=== PATIENT | female | born 1980 | race Caucasian/White ===

== ENCOUNTER 2016-07-01 17:02 | Emergency (ER) | payer OTHER ==
--- NOTE | ~2016-07-01 | CT2 ---
[facility] A Service of [facility] & [facility] RADIOLOGY TEXT RESULTS PATIENT: BOY BURTON LOCATION: SED : [birth year] UNIT #: [id number] AGE: [address]: Kennedi Dia SEX: F ORDER DR: [id number] [address] [address] [id number] E MR#: [id number] Acc #: [id number] NAME: BOY BURTON : 1980 SEX: F STUDY DATE/TIME: 07/01/2016 17:52 UNIT: SED ROOM: STUDY DESCRIPTION: CT Abd and Pelv W Cont Attending Physician: Kennedi Dia Pa-C Ordering Physician: Santos Calabrese M.D. Primary Care Physician: Vince Padron M.D. MEDICAL IMAGING REPORT This report is preliminary unless electronic signature is present. EXAM CT scan of the abdomen and pelvis with contrast, 07/01/2016 HISTORY Abdomen pain and kidney pain for 3 days with back pain and nausea. No known injury. TECHNIQUE Spiral CT was performed through the abdomen and pelvis following intravenous contrast administration only, as per clinician request. This CT exam was performed with one or more of the following radiation dose reduction techniques: Automatic exposure control, adjustment of mA and/or kV according to patient size, and iterative reconstruction. FINDINGS ABDOMEN: The exam is limited by the lack of oral contrast. The liver, spleen, pancreas, gallbladder and biliary tree, adrenal glands and kidneys are normal. PELVIS FINDINGS: There is mild dilatation of the proximal and mid small bowel with air-fluid levels identified and transition zone in the [id number] small bowel at the approximate level of the umbilicus. The colon is normal in course and caliber and contains a moderate amount of fecal matter. Differential diagnosis includes partial small bowel obstruction versus ileus. Clinical correlation and follow up recommended. No adenopathy is seen, and there is no free air identified. Images of the lung bases are normal. IMPRESSION Mild dilatation of the proximal and mid small bowel with multiple air-fluid levels identified. There is a transition zone in the mid abdomen at the approximate level of the umbilicus, with the more distal STS. [facility] A Service of [facility] & [facility] RADIOLOGY TEXT RESULTS PATIENT: BOY BURTON LOCATION: SED : [birth year] UNIT #: [id number] AGE: [address]: Kennedi Dia SEX: F ORDER DR: small bowel somewhat decompressed although the colon is normal in course and caliber and contains a moderate amount of fecal matter. Differential diagnosis includes mild partial small bowel obstruction versus ileus. Clinical correlation and follow up recommended. Dictated by... Dusty Vuong M.D. THIS IS AN ELECTRONICALLY VERIFIED REPORT Dusty Vuong M.D. at 07/02/2016 10:55 AM DEMETRIA/pippa TD: 07/02/2016 02:52 JOB #: [id number] MEDICAL IMAGING REPORT
[~2016-07-01 17:02] MED LIST: ALB/IPRATROPIUM/1 E1; ALBUTEROL17 GM INH; AMOXICILLIN PO; AMOXIL875 MG PO; B COMPLEX1 TAB PO; BACTRIM DS TABL1 TA1 PO; BENADRYL PO; BENADRYL25 MG PO; BENZONATATE PO; CLEOCIN HCL300 M1 PO; CLINDAMYCIN HC300 MG PO; DICLOFENAC PO; DIFLUCAN100 MG PO; DOLOBID500 MG PO; DOXYCYCLINE PO; FLEXERIL PO; FLEXERIL10 MG PO; HYCODAN60 ML 5MG/ PO; HYDROCODON-ACE1 EACH PO; HYDROCODONE BI473 M1 PO; IBUPROFEN PO; IBUPROFEN800 MG PO; KLONOPIN0.5 MG PO; LORTAB 5/500 TA1 TA2 PO; MEDROL4 MG/DOSE- PO; MOBIC15 MG PO; NAPROSYN250 M1 PO; NEXIUM PO; NO MEDICATIONS; PEN-VEE K PO; PERCOCET5/325 PO; PHENERGAN W/CO120 ML PO; PHENERGAN25 MG PO; PREDNISONE PO; PREDNISONE10 MG PO; PROVENTIL0.83 MG/ML; PROVENTIL17 GM IH; PYRIDIUM PO; ROBAXIN500 MG PO; ROBITUSSIN A-C-S1 ML PO; SKELAXIN PO; SUBOXONE 8 MG-1 EAC1 SL; SYNTHROID0.05 MG PO; TYLENOL #3 PO; TYLENOL PM EX-S1 TA4; TYLENOL PM EX-S1 TA4 PO; VICODIN 5/1 TAB 5/50 PO; VICODIN 5/500 T1 TAB PO; VOLTAREN50 MG PO; VOLTAREN75 MG PO; ZITHROMAX PO; ZOFRAN ODT4 MG PO; ZOLOFT PO; [UNRECOGNIZED DRUG - OTHER]
[2016-07-01 17:15] LABS: URINE SOURCE CLEAN CATCH
[2016-07-01 17:19] LABS: URINE APPEARANCE CLEAR; URINE BILIRUBIN NEG (NEG); URINE COLOR YELLOW; URINE GLUCOSE NEG (NORM); URINE KETONE NEG (NEG); URINE LEUKOCYTE ESTERASE NEG (NEG); URINE NITRATE NEG (NEG); URINE PH 6.5 (5-8); URINE PROTEIN NEG (NEG); URINE UROBILINOGEN 0.2 MG/DL (NORM)
[2016-07-01 17:19] LABS: BASOPHIL% 0.9 % (0-2.5); EOSINOPHIL# 0.1 X10e3 (0-0.7); EOSINOPHIL% 2.5 % (0.0-7.0); HEMATOCRIT 36.7 % (35.0-45.0); HEMOGLOBIN 12.3 gm/dL (12.0-16.0); LYMPHOCYTE# 1.9 X10e3 (1.0-3.5); LYMPHOCYTE% 47.8 % (17.0-45.0); MEAN CELL VOLUME 91.3 FL (83-96); MEAN CORPUSCULAR HEMOGLOBIN 30.6 PG (28-34); MEAN CORPUSCULAR HGB CONC 33.5 g/dL (30-36); MEAN PLATELET VOLUME 8.5 FL (6.5-11.5); MONOCYTE# 0.4 X10e3 (0-1.0); MONOCYTE% 10.9 % (3.0-12.0); NEUTROPHIL# 1.5 X10e3 (1.5-7.1); NEUTROPHIL% 37.9 % (40-75); PLATELET COUNT 399 X10e3 (140-420); RED BLOOD COUNT 4.02 X10e (3.90-5.30); RED CELL DISTRIBUTION WIDTH 12.7 % (11.0-15.5); WHITE BLOOD COUNT 4.1 X10e3 (4.0-10.5)
[2016-07-01 17:20] LABS: DIFF IND NO
[2016-07-01 17:22] LABS: MICRO INDICATED? NO; URINE BLOOD NEG (NEG)
[2016-07-01 17:37] LABS: ALBUMIN SERUM 4.5 g/dL (3.5-5.0); ALKALINE PHOSPHATASE 51 U/L (32-92); ALT (SGPT) 24 U/L (10-40); AMYLASE 23 U/L (0-46); AST (SGOT) 31 U/L (10-42); BILIRUBIN,TOTAL 0.2 mg/dL (0.2-2.0); BLOOD UREA NITROGEN 27 mg/dL (9-23); BUN/CREATININE RATIO 33.75; CARBON DIOXIDE 25 mmol/L (22-31); CHLORIDE 106 mmol/L (100-111); CREATININE SERUM 0.8 mg/dL (0.6-1.4); GLOM FILT RATE Estimated ABOVE60 mL/min (>60); GLUCOSE FASTING 97 mg/dL (70-110); LIPASE 28 U/L (22-51); POTASSIUM 4.1 mmol/L (3.5-5.1); PROTEIN TOTAL SERUM 7.8 g/dL (6.0-8.3); SODIUM 139 mmol/L (135-145)
[2016-07-01 17:39] LABS: BILIRUBIN, DIRECT <0.1 mg/dL (0.0-0.2); BILIRUBIN,INDIRECT 0.1 mg/dL (0.0-0.9)
== END 2016-07-01 21:10 ==
LOC: SED 17:02
PROVIDERS: Physician Assistant
DX: K56.60 Unspecified intestinal obstruction (principal); J45.909 Unspecified asthma, uncomplicated; F41.9 Anxiety disorder, unspecified; F32.9 Major depressive disorder, single episode, unspecified; Z98.51 Tubal ligation status; Z98.890 Other specified postprocedural states
CPT/HCPCS: 36415; 74177; 80048; 80076; 81003; 82150; 83690; 84703; 85025; 96361; 96374; 96375; 99285; J1885; J2405; J2550; Q9967

== ENCOUNTER 2016-07-13 23:30 | Emergency (ER) | payer OTHER | END 2016-07-13 23:33 | disposition home or self-care (01) | LOC: SED 23:30 | DX: I80.8 Phlebitis and thrombophlebitis of other sites (principal) | CPT/HCPCS: 99283 ==

== ENCOUNTER 2016-12-18 15:55 | Emergency (ER) | payer OTHER ==
[~2016-12-18] VITALS: Ht 167.6 cm; Wt 104.3 kg
--- NOTE | ~2016-12-18 | CT71 ---
[facility] A Service of [facility] RADIOLOGY TEXT RESULTS PATIENT: BOY BURTON LOCATION: [facility] : [birth year] UNIT #: [id number] AGE: [address]: Boogie Carolina MD SEX: F ORDER DR: [id number] [facility] [address] [place], [place] [address] [id number] E MR#: [id number] Acc #: [id number] NAME: BOY BURTON : 1980 SEX: F STUDY DATE/TIME: 12/18/2016 19:37 UNIT: [facility] ROOM: STUDY DESCRIPTION: CT Head Wo Contrast Attending Physician: Choco Carolina M.D. Ordering Physician: Jaden Carrero M.D. Primary Care Physician: Vince Padron M.D. MEDICAL IMAGING REPORT This report is preliminary unless electronic signature is present EXAM Head CT without HISTORY Migraine headache for 5 days, dizziness, blurred vision and nausea. COMMENT Routine noncontrast head CT is reviewed. This CT examination was performed with one or more of the following radiation dose reduction techniques: automatic exposure control, adjustment of mA and/or kV according to patient size, and iterative reconstruction. Comparison is from 05/17/2008. There is no displaced calvarial fracture. The visualized mastoid air cells are clear. The visualized paranasal sinuses are clear. There is no evidence for acute intracranial hemorrhage or extraaxial fluid collection. The ventricles are normal in size and configuration and the padron-white junction is well-maintained. The basilar cisterns are patent. There is no intracranial mass effect. No acute cortical infarct is suspected but if this is of clinical concern followup imaging recommended. IMPRESSION Negative noncontrast head CT. Dictated by... Mami Rowe M.D. THIS IS AN ELECTRONICALLY VERIFIED REPORT Mami Rowe M.D. at 12/19/2016 10:24 AM [facility] A Service [facility] RADIOLOGY TEXT RESULTS PATIENT: BOY BURTON [id number] [birth year] UNIT #: [id number] AGE: [address]: Boogie Carolina MD SEX: F ORDER DR: TD: 12/19/2016 09:43 JOB #: [id number] MEDICAL IMAGING REPORT Page 1 of 1 COPY
== END 2016-12-18 20:40 | disposition home or self-care (01) ==
LOC: CED 15:55
DX: G43.909 Migraine, unspecified, not intractable, without status migrainosus (principal); J45.909 Unspecified asthma, uncomplicated; Z98.51 Tubal ligation status; Z79.899 Other long term (current) drug therapy
CPT/HCPCS: 36415; 70450; 96361; 96374; 96375; 99284; J1100; J1885; J2765